=== PATIENT | male | born 1955 | race Caucasian/White ===

== ENCOUNTER → 2017-07-21 | Outpatient (CLI) | payer OTHER ==
[~2017-07-21] MED LIST: ASPI81CH PO; ATOR40TA PO; IBUP600 PO; LISHYD1012 PO; LISHYD2012 PO; METF500 PO; METFORMI PO; METO25ER PO; PARO20 PO; PRAV40 PO; RANI150 PO
== END ==
LOC: PLD 07:42 → LAB SHORT 07:42
DX: L72.3 Sebaceous cyst (principal)
CPT/HCPCS: 88304

== ENCOUNTER → 2019-12-24 | Outpatient (CLI) | payer OTHER ==
[2019-12-24 20:27] LABS: Albumin, Blood 3.7 g/dL (3.4-5.0); Bilirubin, Direct 0.1 mg/dL (0.0-0.3); Bilirubin, Indirect 0.4 mg/dL (0.1-0.7); Bilirubin, Total 0.5 mg/dL (0.1-1.0); Globulin, Blood 3.8 g/dL (2.2-4.0); Total Protein, Blood 7.5 g/dL (6.4-8.2)
[2019-12-26 10:10] LABS: HBSAG SCREEN Negative (Negative); HEP A AB, IGM Negative (Negative); HEP B CORE AB, IGM Negative (Negative); HEP C VIRUS AB <0.1 (0.0-0.9)
== END | disposition home or self-care (01) ==
LOC: LAB 19:00 → LAB SHORT 19:00
PROVIDERS: Nurse Practitioner Family
DX: R10.11 Right upper quadrant pain (principal); F10.20 Alcohol dependence, uncomplicated
CPT/HCPCS: 80074; 80076